=== PATIENT | male | born 1950 | race Caucasian/White ===

== ENCOUNTER → 2016-09-11 | Day surgery (SDC) | payer OTHER ==
--- NOTE | 2016-09-10 13:30 | History & Physical Pre-Op ---
General Information and HPI History of Present Illness: Kirt is a 66-year-old male with a long-standing was complaining of a painful neuroma to his left foot. The patient has undergone an extended course of conservative care, including shoe gear and activity modification, rest, immobilization, local steroid injections and courses of NSAIDs. None of this is yielded him any significant relief. The patient presents today for preoperative surgical consultation. Allergies/Medications Allergies: Coded Allergies: MDX - Bee Venom (BEE VENOM) (Intermediate, HIVES AND SWELLING 10/31/14) MDX - Amiodarone (AMIODARONE) (NAUSEA VOMITING 12/19/10) MDX - Simvastatin (SIMVASTATIN) (MUSCLE ACHE 11/03/14) Home Med list Aspirin (Ecotrin) 81 MG ECT 1 TAB PO DAILY SUPPLEMENT (Reported) Epinephrine (Epipen 2-Marcel) 0.3 MG/0.3 ML AUTO.INJCT 0.3 MG IM PRN ANAPHYLAXIS (Reported) Garlic (Garlic-X) (Unknown Strength) TAB (Unknown Dose) PO DAILY SUPPLEMENT ( Reported) Latanoprost 0.005 % DROPS 1 GTT OPH QPM GLAUCOMA (Reported) BOTH EYES Lisinopril 2.5 MG TABLET 1 TAB PO DAILY HTN (Reported) Magnesium Oxide 400 MG TABLET 1 TAB PO DAILY SUPPLEMENT (Reported) Multivitamin (Multiple Vitamins) 1 EACH TABLET 1 TAB PO DAILY SUPPLEMENT ( Reported) Niacin (Slo Niacin) 500 MG TABLET.ER 1 TAB PO DAILY SUPPLEMENT (Reported) OMEGA-3 FATTY ACIDS/FISH OIL (Fish Oil 1,200 MG Softgel) 360 MG-1,200 MG CAPSULE 2 SGL PO DAILY SUPPLEMENT (Reported) Ondansetron Odt 4 MG TAB.RAPDIS 1 TAB PO Q6-PRN PRN NAUSEA/VOMITING Simvastatin (Zocor*) 10 MG TABLET 1 TAB PO QPM CHOLESTEROL (Reported) Travoprost (Travatan Z Oph Ani 0.004% 2.5ML) 0.004 % DROPS 1 GTT OPH QPM BOTH EYES - GLAUCOMA (Reported) Past History Medical History Neurological: SILENT MIGRAINES EENT: NONE Cardiovascular: aflutter, CAD Respiratory: INFLUENZA Gastrointestinal: R/L INGUINAL HERNIA REP Hepatic: NONE Renal: NONE Musculoskeletal: fracture, ARM FX Psychiatric: depression Endocrine: NONE Blood Disorders: NONE Cancer(s): NONE 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 FATHER (hypertension). Psychosocial History Services at Home None Functional Ability ADLs Independent: dressing, eating, toileting, bathing. Ambulation: independent IADLs Independent: shopping, housework, finances, food prep, telephone, transportation , medication admin. Review of Systems Review of Systems: Unremarkable except for that noted in history of present illness Exam & Diagnostic Data Physical Exam: Lungs clear bilaterally. Heart sounds rate and rhythm regular. Lower extremity physical exam demonstrates intact pedal pulses bilaterally. Both dorsalis pedis and posterior tibial arteries are palpable bilaterally. Patient without any sensory motor deficits. Deep tendon reflexes grossly intact. Patient noted to have same and pain with palpation to the plantar aspect of the left foot. A palpable Elmer sign is noted as well. Assessment/Plan Assessment/Plan: Left foot neuroma. A lengthy discussion reviewing both surgical and conservative options was held the patient at bedside and the patient elects to go forward with surgery despite the risks. As Ranked By This Provider Problem List: 1. Lesion of left plantar nerve Attending MD Review Statement Attending Statement Attending MD Statement: examined this patient
[~2016-09-11] VITALS: Ht 182.9 cm; Wt 83.9 kg
[~2016-09-11] MED LIST: ATOVAQUONE750 MG/5 M PO; ECOTRIN81 MG PO; EPIPEN ADULT A0.3 MG IM; LATANOPROST2.5 ML OPH; LISINOPRIL2.5 M1 PO; MAGNESIUM OXID400 MG PO; MASON NATURAL1200 MG PO; MULTIVITAMIN1 TAB PO; PRINIVIL 5MG5 MG PO; SLO NIACIN500 MG PO; TRAVATAN Z50 GTT/1 B OPH; TYLENOL TAB 32325 MG PO; VIBRAMYCIN 100100 MG PO; ZETIA10 MG PO; ZITHROMAX Z-PA250 M1 PO; ZOCOR10 M1 PO; ZOFRAN 4MG ORALL4 MG PO; [UNRECOGNIZED DRUG - OTHER] PO
--- NOTE | 2016-09-11 08:33 | Operative Report ---
Operative/Inv Procedure Report Surgery Date: 09/11/16 Name of Procedure: 1 excision of Andre's neuroma left foot 2 intraoperative administration of ankle block anesthesia Pre-Operative Diagnosis: 1 painful Andre's neuroma left foot Post-Operative Diagnosis: The same Estimated Blood Loss: scant Surgeon/Correctional Manager: KIRBY TIRADO DPM Anesthesia: moderate sedation, block Operative/Procedure Note Note: After obtaining informed consent the patient was brought to the operating room and placed on the operating table in the supine position. The patient isn't securely fastened to the operating table utilizing safety belt. After administration of IV sedation, 10 mL of 0.5% Marcaine plain was infiltrated about the patient's left ankle. 2 g of Ancef were delivered intravenously times one dose. The left foot and ankle within scrubbed prepped and draped in usual aseptic manner. A well-padded ankle tourniquet was placed about the patient's left lower extremity. The left lower extremity was elevated to examine to limb, at which point the ankle tourniquet was inflated 250 mmHg. The dorsal aspect the left foot, where a 4 cm linear incision was made over the distal fourth interspace. Skin was signed 15 blade and deepened subtenons tissues. Dissection was then carried down to the digital branches of the neuroma. All vital neurovascular structures were identified protected. The digital branches were freed and the dissection continued proximally to the level of the neuroma which was freed of its adjacent tissue attachments. It was then distracted distally and cut proximally. The specimen sent for pathologic inspection. The wound was irrigated with normal sterile saline. The deep tissues reapproximated 4-0 Vicryl and the skin edges reprepped with 4-0 nylon. Incision was then dressed with Xeroform 4 x 4's Kerlix and Andrew wrap. The patient was noted to tolerate both procedure and anesthesia well and the patient was transported from the operating room to recovery with vital signs stable best assess intact all digits left foot.
== END ==
LOC: STS 04:25
DX: G57.62 Lesion of plantar nerve, left lower limb (principal); I25.10 Atherosclerotic heart disease of native coronary artery without angina pectoris; Z87.891 Personal history of nicotine dependence; I25.2 Old myocardial infarction; I10 Essential (primary) hypertension
CPT/HCPCS: 88304; J0690; J2001

== ENCOUNTER 2017-07-20 04:24 | Emergency (ER) | payer OTHER ==
[~2017-07-20] VITALS: Ht 182.9 cm; Wt 83.0 kg
--- NOTE | 2017-07-20 04:30 | ED CARDIAC/CP/PALPITATIONS ---
History of Present Illness General Chief Complaint: Palpitations Stated Complaint: HX OF AFLUTTER, FEELS THE SAME Source: patient Exam Limitations: no limitations Vital Signs & Intake/Output Vital Signs & Intake/Output Vital Signs Date Time Temp Pulse Resp B/P B/P Pulse O2 O2 Flow FiO2 Mean Ox Delivery Rate 07/21 0753 72 110/70 07/20 0821 102 116/60 07/20 0819 102 18 116/60 94 Room Air 07/20 0721 97.0 64 18 160/79 97 Room Air 07/20 0436 96 Room Air Room Air 07/20 0433 96.1 97 16 141/79 97 Room Air Room Air Allergies Coded Allergies: MDX - Bee Venom (BEE VENOM) (Intermediate, HIVES AND SWELLING 10/31/14) MDX - Amiodarone (AMIODARONE) (NAUSEA VOMITING 12/19/10) MDX - Simvastatin (SIMVASTATIN) (MUSCLE ACHE 11/03/14) Triage Nurses Notes Reviewed? yes Onset: Gradual Duration: hour(s): Timing: recent history Quality/Severity: mild Location: central Radiation: no radiation Activities at Onset: "I drank 4 cups of coffee yesterday" Modifying Factors: Improves With: rest. HPI: 67 yo gentleman, h/o porcine aortic valve repair in 2010, followed by brief episode of aflutter, h/o aflutter 2 years ago which spontaneously converted, presents with 1-2 hours of palpitations. "I feel like my heart is back in aflutter...My heart is irregular." He notes no diaphoresis, dizziness, chest pain, syncopal symptoms. He is otherwise well. (Khoi SYED,Audi Rodriguez) Reconcile Medications Apixaban (Eliquis) 5 MG TABLET 1 TAB PO BID AFIB Aspirin (Ecotrin) 81 MG ECT 1 TAB PO DAILY SUPPLEMENT (Reported) Epinephrine (Epipen 2-Marcel) 0.3 MG/0.3 ML AUTO.INJCT 0.3 MG IM PRN ANAPHYLAXIS (Reported) Garlic (Garlic-X) (Unknown Strength) TAB (Unknown Dose) PO DAILY SUPPLEMENT ( Reported) Latanoprost 0.005 % DROPS 1 GTT OPH QPM GLAUCOMA (Reported) BOTH EYES Lisinopril 2.5 MG TABLET 1 TAB PO DAILY HTN (Reported) Magnesium Oxide 400 MG TABLET 1 TAB PO DAILY SUPPLEMENT (Reported) Metoprolol Tartrate 25 MG TABLET 1 TAB PO BID ATRIAL FIBRILLATION Multivitamin (Multiple Vitamins) 1 EACH TABLET 1 TAB PO DAILY SUPPLEMENT ( Reported) Niacin (Slo Niacin) 500 MG TABLET.ER 1 TAB PO DAILY SUPPLEMENT (Reported) OMEGA-3 FATTY ACIDS/FISH OIL (Fish Oil 1,200 MG Softgel) 360 MG-1,200 MG CAPSULE 2 SGL PO DAILY SUPPLEMENT (Reported) Ondansetron Odt 4 MG TAB.RAPDIS 1 TAB PO Q6-PRN PRN NAUSEA/VOMITING Rosuvastatin Calcium (Crestor) 10 MG TABLET 1 TAB PO DAILY CHOL (Reported) Simvastatin (Zocor*) 10 MG TABLET 1 TAB PO QPM CHOLESTEROL (Reported) Travoprost (Travatan Z Oph Ani 0.004% 2.5ML) 0.004 % DROPS 1 GTT OPH QPM BOTH EYES - GLAUCOMA (Reported) (Krystina SYED,El Xavier) Past History Travel History Traveled to [place] past 21 day No Medical History Any Pertinent Medical History? 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 FATHER (hypertension). Hx Contributory? No (Khoi SYED,Audi Rodriguez) Review of Systems Review of Systems Constitutional: Reports: no symptoms. EENTM: Reports: no symptoms. Respiratory: Reports: no symptoms. Cardiovascular: Reports: no symptoms. GI: Reports: no symptoms. Genitourinary: Reports: no symptoms. Musculoskeletal: Reports: no symptoms. Skin: Reports: no symptoms. Neurological/Psychological: Reports: no symptoms. Hematologic/Endocrine: Reports: no symptoms. Immunologic/Allergic: Reports: no symptoms. All Other Systems: Reviewed and Negative (Khoi SYED,Audi Rodriguez) Physical Exam Physical Exam General Appearance: well developed/nourished, no apparent distress Head: atraumatic, normal appearance Eyes: Bilateral: normal appearance. Ears, Nose, Throat: normal pharynx, normal ENT inspection Neck: normal inspection, supple, full range of motion Respiratory: normal breath sounds, chest non-tender, no respiratory distress, quiet respiration, lungs clear Cardiovascular: irregularly irregular, 4/6 systolic murmur Gastrointestinal: normal bowel sounds, soft Back: normal inspection, normal range of motion Extremities: normal inspection, normal capillary refill, normal range of motion, no edema Neurologic/Psych: no motor/sensory deficits, awake, alert, oriented x 3 Skin: intact, normal color, warm/dry Core Measures ACS in differential dx? No CVA/TIA Diagnosis No Sepsis Present: No Sepsis Focused Exam Completed? No (Khoi SYED,Audi Rodriguez) Progress Differential Diagnosis: AFIB/FLUTTER VS OH VS OTHER. Plan of Care: Orders Procedure Date/time Status TROPONIN LEVEL 07/20 07 Complete EKG 07/20 0730 Active D-DIMER 07/21 431 Complete TROPONIN LEVEL 07/20 429 Complete PARTIAL THROMBOPLASTIN TIME 07/20 429 Complete PROTHROMBIN TIME 07/20 429 Complete LIPASE 07/20 429 Complete HEPATIC FUNCTION PANEL 07/20 429 Complete CBC WITHOUT DIFFERENTIAL 07/20 429 Complete BASIC METABOLIC PANEL 07/20 429 Complete AMYLASE 07/20 429 Complete EKG 07/20 0425 Active Laboratory Tests 07/20/17 0740: Troponin I < 0.01 07/20/17 0435: D-Dimer High Sensitivty < 200 07/20/17 0435: Anion Gap 12, Estimated GFR > 60, BUN/Creatinine Ratio 22.9, Glucose 102 H, Calcium 9.9, Total Bilirubin 0.2, Direct Bilirubin 0.2, AST 38, ALT 47, Alkaline Phosphatase 60, Troponin I < 0.01, Total Protein 7.0, Albumin 4.3, Amylase 97, Lipase 123, PT 12.1, INR 1.11, APTT 30, CBC w Diff NO MAN DIFF REQ, RBC 4.94, MCV 91.2, MCH 30.3, MCHC 33.3, RDW 13.3, MPV 9.1, Gran % 48.8, Lymphocytes % 37.4, Monocytes % 9.9 H, Eosinophils % 3.6, Basophils % 0.3, Absolute Granulocytes 3.2, Absolute Lymphocytes 2.5, Absolute Monocytes 0.7 H, Absolute Eosinophils 0.2, Absolute Basophils 0 Diagnostic Imaging: Viewed by Me: Radiology Read. Discussed w/RAD: Radiology Read. CXR Impression: PATIENT: NAOMI MORRISON PRESENT AGE: 67 PATIENT ACCOUNT NO: [id number] : 51 LOCATION: [facility] ORDERING PHYSICIAN: Audi Westfall MD SERVICE DATE: 07/20/17 EXAM TYPE: RAD - XRY-PORTABLE CHEST XRAY EXAMINATION: XR PORTABLE CHEST CLINICAL INFORMATION: Palpitations COMPARISON: 10/31/2014 TECHNIQUE: Portable frontal view of the chest was obtained. FINDINGS: The lungs are clear with no focal consolidation. No evidence of pneumothorax, pulmonary edema, or pleural effusions. The cardiomediastinal silhouette is unremarkable. No acute osseous findings. Sternal wires are present. IMPRESSION: No acute cardiopulmonary findings. DICTATED BY: Osbaldo Beckman MD DATE/TIME DICTATED:07/20/17626 SKIN LIFTER BACON:SHARON DATE/TIME TRANSCRIBED:07/20/17626 CONFIDENTIAL, DO NOT COPY WITHOUT APPROPRIATE AUTHORIZATION. <Electronically signed in Other Vendor System> SIGNED BY: Osbaldo Beckman MD 07/20/17630 Initial ED EKG: ATRIAL FIBRILLATION, NEW FROM PRIOR EKG, NON SPECIFIC ST SEG CHANGES. Hand-Off Endorsed To: El Flaherty MD Endorsed Time: 0700 Pending: EKG, labs (Khoi SYED,Audi Rodriguez) Prior EKG: changed Repeat EKG: unchanged Rhythm Strip: atrial flutter (El Flaherty MD) Departure Departure Condition: Stable Clinical Impression Primary Impression: Atrial fibrillation Departure Forms: Customer Survey General Discharge Information Comments 07/20/17, 6:05pm... discussed with dr. escobedo... will anticoagulate with eliquis , check trop/ekg #2... pt to follow up with his radioactivity technician dr. torres if second trop/ekg benign. (Khoi SYED,Audi Rodriguez) Departure Disposition: HOME OR SELF CARE Referrals: Darcie SYED,Mark Sanford MD,Eliazar Moss (PCP/Family) Additional Instructions: TAKE THE ELIQUIS AND METOPROLOL DIRECTED FOLLOW UP WITH DR. TORRES RETURN IF YOU HAVE ANY BLEEDING, YOU ARE GETTING DIZZY OR LIGHTHEADED OR FOR ANY CONCERNS Prescriptions: Current Visit Scripts Apixaban (Eliquis) 1 TAB PO BID #60 TAB Ref 1 Metoprolol Tartrate 1 TAB PO BID #60 TAB (Krystina SYED,El Xavier) Critical Care Note Critical Care Note Critical Care Time: non-applicable (Khoi SYED,Audi Rodriguez) Critical Care Note Critical Care Time: non-applicable (Khoi SYED,Audi Rodriguez)
[2017-07-20] MEDS ORDERED: CRESTOR10 M1 PO (04:40)
[2017-07-20 04:47] LABS: ABSOLUTE BASOPHIL COUNT 0 /CUMM (0.0-0.2); ABSOLUTE EOSINOPHIL COUNT 0.2 /CUMM (0.0-0.7); ABSOLUTE GRANULOCYTE CT 3.2 /CUMM (1.4-6.5); ABSOLUTE LYMPH COUNT 2.5 /CUMM (1.2-3.4); ABSOLUTE MONOCYTE COUNT 0.7 /CUMM (0.10-0.60); BASOPHIL % 0.3 % (0.0-2.0); EOSINOPHIL % 3.6 % (0-5); GRANULOCYTE % 48.8 % (42.2-75.2); MEAN CORPUSCULAR HGB 30.3 PG (27.0-31.0); MEAN CORPUSCULAR HGB CONC 33.3 G/DL (33.0-37.0); MEAN CORPUSCULAR VOLUME 91.2 FL (80.0-94.0); MEAN PLATELET VOLUME 9.1 FL (7.4-10.4); PLATELET COUNT 286 /CUMM (130-400); RBC DISTRIBUTION WIDTH 13.3 % (11.5-14.5); RED BLOOD CELL CT 4.94 /CUMM (4.70-6.10); WHITE BLOOD CELL COUNT 6.6 /CUMM (4.8-10.8)
[2017-07-20 04:55] LABS: PT 12.1 SEC (9.4-12.5); PTT 30 SEC (25-37)
[2017-07-20] MEDS ORDERED: ELIQUIS5 M1 PO (06:19)
--- NOTE | 2017-07-20 06:31 | RADIOLOGY REPORT ---
EXAMINATION: XR PORTABLE CHEST CLINICAL INFORMATION: Palpitations COMPARISON: 10/31/2014 TECHNIQUE: Portable frontal view of the chest was obtained. FINDINGS: The lungs are clear with no focal consolidation. No evidence of pneumothorax, pulmonary edema, or pleural effusions. The cardiomediastinal silhouette is unremarkable. No acute osseous findings. Sternal wires are present. IMPRESSION: No acute cardiopulmonary findings.
[2017-07-20] MEDS ORDERED: METOPROLOL TART25 M1 PO (08:15)
[2017-07-20 08:53] VITALS: BP 110/70
== END 2017-07-20 08:54 ==
LOC: ERH 04:24
PROVIDERS: Pediatrics
DX: I48.91 Unspecified atrial fibrillation (principal)
CPT/HCPCS: 71045; 93005; 93010

== ENCOUNTER 2018-02-06 09:59 | Emergency (ER) | payer OTHER ==
[~2018-02-06] VITALS: Ht 182.9 cm; Wt 84.4 kg
[~2018-02-06 09:59] MED LIST changes: +ASPIRIN EC81 M1 PO; +CRESTOR10 M1 PO; -ECOTRIN81 MG PO; +ELIQUIS5 M1 PO; +FISH OIL 1,2001 EAC2 PO; +GARLIC1 EAC1 PO; +LISINOPRIL10 M1 PO; -LISINOPRIL2.5 M1 PO; +MAGNESIUM OXID400 M1 PO; -MAGNESIUM OXID400 MG PO; -MASON NATURAL1200 MG PO; +METOPROLOL TART25 M1 PO; +MULTIPLE VITAM1 EAC2 PO; -MULTIVITAMIN1 TAB PO; -SLO NIACIN500 MG PO; +SLO-NIACIN500 MG PO; -[UNRECOGNIZED DRUG - OTHER] PO
[2018-02-06 10:08] VITALS: BP 137/76
[2018-02-06] MEDS ORDERED: VITAMIN D31000 UNI2 PO (10:34)
[2018-02-06] MEDS ORDERED: LIPO-FLAVONOID1 EACH PO (10:35)
--- NOTE | 2018-02-06 10:35 | ED HAND/WRIST INJURY COMPLAINT ---
See Addendum History of Present Illness General Chief Complaint: Laceration Procedure Stated Complaint: LAC TO HAND Source: patient Exam Limitations: no limitations Vital Signs & Intake/Output Vital Signs & Intake/Output Vital Signs Date Time Temp Pulse Resp B/P B/P Pulse O2 O2 Flow FiO2 Mean Ox Delivery Rate 02/06 1008 97.0 64 20 137/76 98 Room Air Allergies Coded Allergies: venom-honey bee (Intermediate, HIVES AND SWELLING 07/20/17) amiodarone (NAUSEA/VOMITING 07/20/17) Reconcile Medications Apixaban (Eliquis) 5 MG TABLET 1 TAB PO BID AFIB Aspirin (Ecotrin*) 81 MG TABLET.DR 1 TAB PO DAILY HEART HEALTH (Reported) Bioflav,Lemon/Vit Bcomp,C (Lipo-Flavonoid Plus Caplet) 200 MG-100 MG TABLET 1 TAB PO DAILY RINGING IN EARS (Reported) Cephalexin (Keflex) 500 MG CAPSULE 1 CAP PO TID skin infection Cholecalciferol (Vitamin D3) 1,000 UNIT TABLET 1 TAB PO DAILY VITAMIN SUPPORT (Reported) Garlic 1 EACH TABLET 1 TAB PO DAILY SUPPLEMENT (Reported) Latanoprost 0.005 % DROPS 1 GTT OPH QPM GLAUCOMA (Reported) BOTH EYES Lisinopril 10 MG TABLET 1 TAB PO DAILY HEART (Reported) Magnesium Oxide 400 MG TABLET 1 TAB PO DAILY SUPPLEMENT (Reported) Multivitamin (Multiple Vitamins) 1 EACH TABLET 1 TAB PO DAILY VITAMIN SUPPORT (Reported) Niacin (Slo-Niacin) 500 MG TABLET.ER 1 TAB PO DAILY SUPPLEMENT (Reported) Zephyr-3S/Dha/Epa/Fish Oil (Fish Oil 1,200 MG Softgel) 360-1,200MG CAPSULE 2 CAP PO DAILY SUPPLEMENT (Reported) Rosuvastatin Calcium (Crestor) 10 MG TABLET 1 TAB PO DAILY CHOL (Reported) Triage Note: PT TO ED C/O LAC TO LEFT HAND 2 FINGERS YESTERDAY. INDEX AND MIDDLE FINGERS. 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 HAPPENED 1000 YESTERDAY AM. UNKNOWN LAST TETANUS. PT STATES HE PUT "BUTTERFLY BANDAGES" ON YESTERDAY BUT STATES HIS FINGERS ARE STILL BLEEDING. Triage Nurses Notes Reviewed? yes Occurred: yesterday Duration: day(s): Timing: recent history Injury Environment: home Severity: moderate Pain/Injury Location: Left: 2nd finger, 3rd finger. Context: laceration HPI: 68yo male with hx of afib and a p mechanic heart valve on eliquis presents to ED complaining of lacerations sustained to fingers of left hand yesterday morning around 10AM. Patient states that he sustained deeper laceration to middle finger which he dressed with butterfly stitches and a smaller laceration near nail of the ring finger which he dressed with a bandage. Patient states he cleaned his wounds with water and hydrogen peroxide. Patient states that today he looked at once and saw bleeding on his dressings. He did not take his dose of eliquis last night or this morning. (Emerita Cruz) Past History Travel History Traveled to [place] past 21 day No Medical History Any Pertinent Medical History? 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 FATHER (hypertension). Hx Contributory? No (Emerita Cruz) Review of Systems Review of Systems Constitutional: Reports: no symptoms. EENTM: Reports: no symptoms. Respiratory: Reports: no symptoms. Cardiovascular: Reports: no symptoms. GI: Reports: no symptoms. Genitourinary: Reports: no symptoms. Musculoskeletal: Reports: see HPI. Skin: Reports: see HPI. Neurological/Psychological: Reports: no symptoms. Hematologic/Endocrine: Reports: no symptoms. Immunologic/Allergic: Reports: no symptoms. All Other Systems: Reviewed and Negative (Emerita Cruz) Physical Exam Physical Exam General Appearance: well developed/nourished, no apparent distress, alert, awake Head: atraumatic, normal appearance Eyes: Bilateral: normal appearance. Ears, Nose, Throat: hearing grossly normal Neck: normal inspection, supple, full range of motion Cardiovascular/Respiratory: no respiratory distress Back: normal inspection, normal range of motion Wrist Left: normal range of motion, normal inspection Wrist Right: normal range of motion, normal inspection Hand Left: 3rd digit: 2cm laceration into subcutaneous tissue which is well approximated with butterfly stitches, no active bleeding 4th digit: 0.5cm superficial laceration distal to nail without nail involvement, no active bleeding Hand Right: normal inspection, normal range of motion Neurologic/Tendon: normal sensation, normal motor functions, normal tendon functions Skin: lacerations as mentioned above (Keya LUKE,Emerita Valiente) Progress Differential Diagnosis: sprain, laceration, bleeding Plan of Care: The patient's lacerations were sustained greater than 24 hours ago. Risk of infection with suture placement at this time. Patient's deeper laceration and middle finger is well approximated with butterfly stitches that he applied at home. Patient has no active bleeding at this time. Will leave butterfly stitches on and have patient restart his eliquis given mechanical valve. Patient placed on antibiotics given the duration of his lacerations. If further bleeding patient instructed to return to the emergency department or follow up with plastics referral for wound revision. Discussed findings with Dr. Braxton who agrees with this plan. 6:46 PM - I called the patient to inform them of lack of tetanus vaccine. He states he'll call his primary care doctor to see if he can have the vaccine given at PCP's office. If not, he will return to ED for vaccine. Patient reports no further bleeding from wounds at this time and has resarted his eliquis. (Emerita Cruz) Departure Departure Disposition: HOME OR SELF CARE Condition: Stable Clinical Impression Primary Impression: Laceration Referrals: Juvenal SYED,Eliazar Moss (PCP/Family) Elton SYED,Flaco Montalvo Additional Instructions: Begin antibiotics as prescribed. Restart your eliquis. Keep the area covered with dressings. The butterfly stitches can come off in 3 days. If you have bleeding from the wound please return to the emergency department or follow up with the hand specialist for a revision. If wound heals appropriately and scabs over without further bleeding continue antibiotics. Please note that there might be incidental findings in your evaluation that are unrelated to the current emergency department visit. Please notify your primary care doctor about this emergency department visit in order to obtain and review all of the testing performed so that these incidental findings can be monitored as needed. If you had an x-ray performed, please understand that some fractures may not be seen on the initial set of x-rays. If your symptoms persist you might need a repeat set of x-rays to check for such a fracture. If you had a laceration evaluated, please understand that foreign bodies such as glass or wood may not be visible to the naked eye or on plain x-rays. If the wound becomes red, swollen, increasingly more painful or if there is any drainage from the wound, please have it reevaluated by a physician for the possibility of a retained foreign body. If you're unable to follow up as outlined in the discharge instructions please return to the emergency department. Thank you for choosing the [facility] Emergency Department for your care. It was a pleasure to serve you today. Departure Forms: Customer Survey General Discharge Information Prescriptions: Current Visit Scripts Cephalexin (Keflex) 1 CAP PO TID #30 CAP (Keya LUKE,Emerita Valiente) PA/REFUSE DRIVER Co-Sign Statement Statement: ED Attending supervision documentation- [] I saw and evaluated the patient. I have also reviewed all the pertinent lab results and diagnostic results. I agree with the findings and the plan of care as documented in the PA's/REFUSE DRIVER's documentation. [x] I have reviewed the ED Record and agree with the PA's/REFUSE DRIVER's documentation. [] Additions or exceptions (if any) to the PAs/REFUSE DRIVER's note and plan are summarized below: [] (Irais SYED, Fredrick)
[2018-02-06] MEDS ORDERED: KEFLEX500 M1 PO (10:52)
== END 2018-02-06 11:15 ==
LOC: ERH 09:59
DX: S61.213A Laceration without foreign body of left middle finger without damage to nail, initial encounter (principal); S61.215A Laceration without foreign body of left ring finger without damage to nail, initial encounter; I10 Essential (primary) hypertension; I48.92 Unspecified atrial flutter; Z79.01 Long term (current) use of anticoagulants; Z79.82 Long term (current) use of aspirin; W29.3XXA Contact with powered garden and outdoor hand tools and machinery, initial encounter